=== PATIENT | female | born 1955 | race Two or more races ===

== ENCOUNTER 2025-04-27 12:40 | Day surgery (SDC) | payer OTHER ==
[2025-04-27] VITALS (10 sets, daily range): BP systolic 100–119; BP diastolic 59–75; PULSE 67–79; RESP 15–20; TEMP 97.7; O2SAT 92–96
[~2025-04-27] VITALS: Ht 167.6 cm; Wt 77.1 kg
[~2025-04-27 12:40] MED LIST: CETI10TA2 PO; EZET10TA22 PO; HYDR200T36 PO; LEVO125T59 PO; SULF500T57 PO
[2025-04-27] MEDS: IODIXANOL 320MG/ML 100ML BTL IV ONE (13:12)
[2025-04-27] MEDS: fentaNYL CITRATE 100 MCG/2 ML VL ONE (13:23)
[2025-04-27] MEDS: VERAPAMIL 2.5MG/ML INJ 2ML VIAL IV ONE (13:23)
[2025-04-27] MEDS: ANGIOMAX 250 MG VIAL IV ONE (13:23)
[2025-04-27] MEDS: LIDOCAINE 2%HCL (LOCAL ANESTH.) INJ 20ML MDV ONE (13:24)
[2025-04-27] MEDS: SODIUM CHL 0.9% 0 ML ONE (13:24)
[2025-04-27] MEDS: MIDAZOLAM HCL 2MG/2ML 2ml VIAL (1mg/ml) ONE (13:24)
--- NOTE | 2025-04-27 14:21 | DVHOP2 ---
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 US guided vascular access saved to pacs system PREOPERATIVE DIAGNOSES: Abnormal stress test with CCS class 3 angina, POSTOP DIAGNOSIS: chst pain DESCRIPTION OF PROCEDURE: The patient or appropriate family signed informed consent understanding the risks, benefits and alternatives of the procedure, they wished to proceed. The patient was brought to the cardiac track repair laborer in n.p.o. state. The patient was prepped in a sterile fashion. Sedation was used per cardiac cath protocol. I administered 2 mL of 2% lidocaine to the right wrist. With an antegrade front wall puncture. I used US guidance and the R radial arteyr was pantent. I cannulated the right radial artery and placed a 6-[place] slender. Next, an intra-arterial spasmolytic was administered. Next, a - 5 [place] catheter an were used for coronary angiogram and LVEDP measurement and pressure pullback. At the completion of procedure, all guides and wires were removed, and there were no immediate complications. FINDINGS: RCA: Moderate vessel off the right sinus of Valsalva, there is no severe flow limiting stenosis. LEFT MAIN: Moderate size left main, it bifurcates into LAD and circumflex. no stenosis CIRCUMFLEX: Moderate caliber vessel coming off the left main with no flow limi ting stenosis. LAD: LAD is a moderate caliber vessel coming of the left main. no stenosis LVEDP of 14 mmhg CONCLUSIONS: 1. NO severe epicardial CAD PLAN: Aggressive risk factor modification and medical management for the patient. KEARA PAREDES MD Apr 27, 2025 14:21
[2025-04-27] MEDS: HEPARIN SODIUM (PORCINE) 5000 UNITS/ML 1ML VIAL ONE (14:34)
== END 2025-04-27 17:27 | disposition home or self-care (01) ==
LOC: CATH 12:40
PROVIDERS: ATTEND Internal Medicine
DX: R94.39 Abnormal result of other cardiovascular function study (principal); I20.89 Other forms of angina pectoris; I25.2 Old myocardial infarction; Z79.890 Hormone replacement therapy; Z98.890 Other specified postprocedural states; Z88.1 Allergy status to other antibiotic agents; Z79.899 Other long term (current) drug therapy
CPT/HCPCS: 93458; C1769; C1894; J1644; J2250; J3010; Q9967; 99152